=== PATIENT | female | born 1990 | race Caucasian/White ===

== ENCOUNTER 2017-12-02 21:14 | Emergency (ER) | END 2017-12-03 05:10 | disposition home or self-care (01) ==

== ENCOUNTER 2017-12-06 17:44 | Emergency (ER) | END 2017-12-06 21:45 | disposition home or self-care (01) ==

== ENCOUNTER 2017-12-15 17:06 | Emergency (ER) | END 2017-12-15 22:15 | disposition home or self-care (01) ==

== ENCOUNTER 2017-12-23 09:38 | Emergency (ER) | END 2017-12-23 13:01 | disposition home or self-care (01) ==

== ENCOUNTER 2018-01-05 17:05 | Emergency (ER) | END 2018-01-05 22:27 | disposition home or self-care (01) ==

== ENCOUNTER 2018-02-02 22:21 | Emergency (ER) | END 2018-02-03 02:12 | disposition home or self-care (01) ==

== ENCOUNTER 2018-02-24 09:57 | Emergency (ER) | END 2018-02-24 12:12 | disposition home or self-care (01) ==

== ENCOUNTER 2018-02-24 12:18 | Outpatient (CLI) | END 2018-02-24 16:35 | disposition home or self-care (01) ==

== ENCOUNTER 2018-03-31 08:48 | Outpatient (CLI) | END 2018-03-31 10:40 | disposition home or self-care (01) ==

== ENCOUNTER 2018-03-31 10:30 | Emergency (ER) | END 2018-03-31 13:05 | disposition home or self-care (01) ==

== ENCOUNTER 2018-04-30 07:40 | Inpatient (IN) | END 2018-05-11 14:45 | disposition home or self-care (01) | DRG 775 ==

== ENCOUNTER 2018-05-24 20:45 | Inpatient (IN) | END 2018-06-02 14:45 | disposition home or self-care (01) | DRG 765 ==

== ENCOUNTER 2019-06-08 09:35 | Emergency (ER) | payer MEDICAID, OTHER ==
[~2019-06-08] VITALS: Ht 162.6 cm; Wt 80.0 kg
[~2019-06-08 09:35] MED LIST: OMEP20CA17 PO; ONDA4TAB8 PO; PREN1TAB79 PO
[2019-06-08 09:38] VITALS: BP 118/66; PULSE 68; RESP 18; Ht 162.6 cm; Wt 80.0 kg
[2019-06-08] MEDS ORDERED: ONDANSETRON (ODT) 4 MG TAB ODT STA (10:07)
[2019-06-08] MEDS ORDERED: FAMOTIDINE 20 MG TAB PO ONE (10:30)
[2019-06-08] MEDS ORDERED: LIDOCAINE/MYLANTA 40 ML BTL PO ONE (10:30)
== END 2019-06-08 11:20 | disposition home health service (06) ==
LOC: FTE 09:35
DX: K29.00 Acute gastritis without bleeding (principal)
CPT/HCPCS: 80053; 81001; 81025; 85025; Z7610; 36415; 99283